=== PATIENT | female | born 1980 | race Caucasian/White ===

== ENCOUNTER 2020-11-21 18:34 | Emergency (ER) | payer OTHER ==
[2020-11-21 18:54] VITALS: RESP 18; TEMP 97.9
--- NOTE | 2020-11-21 19:18 | ED ---
Skin/Abscess/FB HPI - General Chief complaint: Skin/Abscess/Foreign Body Stated complaint: female Time Seen by Provider: 11/21/20 19:00 Source: patient Mode of arrival: ambulatory Limitations: no limitations - History of Present Illness Initial comments: 40-year-old female patient presents to the emergency department today for evaluation of "cyst" to her left buttock. Patient states that she started having issues with the area a couple of weeks ago it did get better then started getting worse again a few days ago. States the area is increased in size and has become more painful. Denies any drainage from the area. Denies any fever or chills. Denies nausea or vomiting. States she has had abscess to her axilla before which did have to be drained. Denies any IV drug use. Denies any history of diabetes or other immunosuppressive conditions. Patient denies any recent rash, cough, shortness of breath, chest pain, abdominal pain, diarrhea, constipation, back pain, numbness, tingling, dizziness, weakness, hematuria, dysuria, urinary urgency, urinary frequency, headache, visual changes, or any other complaints. - Related Data Previous Rx's Medication Instructions Recorded Clindamycin [Cleocin] 450 mg PO Q6H #120 cap 11/21/20 Allergies Allergy/AdvReac Type Severity Reaction Status Date / Time Sulfa (Sulfonamide Allergy Anaphylaxis Verified 11/21/20 18:54 Antibiotics) Review of Systems ROS Statement: Those systems with pertinent positive or pertinent negative responses have been documented in the HPI. ROS Other: All systems not noted in ROS Statement are negative. Past Medical History Past Medical History: No Reported History History of Any Multi-Drug Resistant Organisms: None Reported Past Surgical History: Hysterectomy Past Psychological History: Anxiety, Bipolar, Depression Smoking Status: Current every day smoker Past Alcohol Use History: None Reported Past Drug Use History: None Reported General Exam Limitations: no limitations General appearance: alert, in no apparent distress, other (This is a well- developed, well-nourished adult female patient in no acute distress. Vital signs upon presentation temperature 97.9F, pulse 83, respirations 18, blood pressure 118/64, pulse ox 97% on room air.) Eye exam: Present: normal appearance, PERRL, EOMI. Absent: scleral icterus, co njunctival injection, periorbital swelling ENT exam: Present: normal exam, normal oropharynx, mucous membranes moist Respiratory exam: Present: normal lung sounds bilaterally. Absent: respiratory distress, wheezes, rales, rhonchi, stridor Cardiovascular Exam: Present: regular rate, normal rhythm, normal heart sounds. Absent: systolic murmur, diastolic murmur, rubs, gallop, clicks GI/Abdominal exam: Present: soft, normal bowel sounds. Absent: distended, tenderness, guarding, rebound, rigid Neurological exam: Present: alert, oriented X3, CN II-XII intact Psychiatric exam: Present: normal affect, normal mood Skin exam: Present: warm, dry, intact, normal color. Absent: rash Expanded 1 - There is 3 cm x 3 cm abscess to the left lower buttock, surrounding erythema, tender to touch, central area is fluctuant with some surrounding induration. Course Vital Signs 11/21/20 18:51 Temperature 97.9 F Pulse Rate 83 Respiratory 18 Rate Blood Pressure 118/64 O2 Sat by Pulse 97 Oximetry Procedures - Incision & Drainage Consent Obtained: verbal consent Indication: abscess Site: buttock (left) Size (cm): 3 Anesthetic Used: lidocaine 1% Amount (mLs): 2 I&D Cleaning Method: Betadine Scalpel Used: #11 I&D Drainage Obtained: Pus, Blood Culture Obtained?: Yes Complications: pain Patient Tolerated Procedure: well Medical Decision Making - Medical Decision Making 40-year-old female patient presented to the emergency department for evaluation of "cyst" to the left buttock. Physical examination revealed a 3 cm abscess to the left lower buttock with a central area of fluctuance. This area was incised and drained as documented. She was started on antibiotics. She is educated regarding hot compresses and sitz baths. She is given a starter pack and Tylenol for codeine. I was going to give her prescription for ibuprofen however she declined stating that it turned her stomach. She does have naproxen at home. She is instructed to follow-up with her primary care physician for recheck in 1-2 days. Return parameters were discussed in detail. She verbalizes understanding and agrees with this plan. Case discussed with Dr. Stinson. Disposition Clinical Impression: Left buttock abscess Disposition: HOME SELF-CARE Condition: Good Instructions (If sedation given, give patient instructions): Abscess Incision and Drainage (ED) Additional Instructions: Do warm compresses or warm baths several times per day. Follow up with the primary for evaluation in 1-2 days. Return to the emergency department for evaluation for any new, worsening, or concerning symptoms. Prescriptions: Clindamycin [Cleocin] 450 mg PO Q6H #120 cap Is patient prescribed a controlled substance at d/c from ED?: No Referrals: Huang Rod MD [Primary Care Provider] - 1-2 days Time of Disposition: 19:46
[2020-11-21] MEDS: IBUPROFEN 600 MG STARTER PACK 4 TAB BTL PO STA (19:24)
[2020-11-21] MEDS: ACET/COD 300 MG/30 MG STARTER PACK 6 TAB BTL PO STA (19:25)
[2020-11-21] MEDS: LIDOCAINE 1% INJ 10MG/ML (20 ML MDV) SQ ONE (19:26)
[2020-11-21] MEDS: CLINDAMYCIN 150 MG CAP PO STA (19:44)
[2020-11-21 19:59] VITALS: BP 120/80; PULSE 87
== END 2020-11-21 19:54 | disposition home or self-care (01) ==
LOC: EC 18:34
DX: L02.31 Cutaneous abscess of buttock (principal); F41.9 Anxiety disorder, unspecified; F32.9 Major depressive disorder, single episode, unspecified; F17.200 Nicotine dependence, unspecified, uncomplicated
CPT/HCPCS: 87070; 87205; 99282; 10060; J2001

== ENCOUNTER 2020-12-03 13:11 | Emergency (ER) | payer OTHER ==
[2020-12-03 13:16] VITALS: BP 120/83; PULSE 101; RESP 18; TEMP 98.2
[2020-12-03] MEDS ORDERED: LIDOCAINE 1% INJ 10MG/ML (20 ML MDV) SQ ONE (13:23)
[2020-12-03] MEDS ORDERED: HYDROmorphone 0.5 MG/0.5 ML SYRINGE IM STA (13:23)
[2020-12-03] MEDS ORDERED: ACET/COD 300 MG/30 MG STARTER PACK 6 TAB BTL PO STA (14:00)
--- NOTE | 2020-12-03 14:00 | ED ---
Skin/Abscess/FB HPI - General Source: patient Mode of arrival: ambulatory Limitations: no limitations <Yoana Ackerman - Last Filed: 12/03/20 14:00> <Lady Scott - Last Filed: 12/12/20 14:48> - General Chief complaint: Skin/Abscess/Foreign Body Stated complaint: Boil R leg Time Seen by Provider: 12/03/20 13:16 - History of Present Illness Initial comments: 40yo female presents today for chief complaint of left buttock abscess. Patient states she was here approximately 5 days ago and had an abscess of the left buttock drained. Patient states that it is persistent. She denies fevers chills or general malaise she denies any spreading of redness that she can tell. Patient states is very tearful to touch. She denies any rectal discharge or bleeding. Remaining used to negative upon arrival patient appears well nontoxic in no acute distress (Yoana Ackerman) - Related Data Previous Rx's Medication Instructions Recorded Clindamycin [Cleocin] 450 mg PO Q6H #120 cap 11/21/20 Doxycycline [Vibramycin] 100 mg PO BID 10 Days #20 capsule 12/03/20 Allergies Allergy/AdvReac Type Severity Reaction Status Date / Time Sulfa (Sulfonamide Allergy Anaphylaxis Verified 12/03/20 13:14 Antibiotics) Review of Systems ROS Other: All systems not noted in ROS Statement are negative. <Yoana Ackerman - Last Filed: 12/03/20 14:00> ROS Other: All systems not noted in ROS Statement are negative. <Lady Scott - Last Filed: 12/12/20 14:48> ROS Statement: Those systems with pertinent positive or pertinent negative responses have been documented in the HPI. Past Medical History Past Medical History: No Reported History History of Any Multi-Drug Resistant Organisms: None Reported Past Surgical History: Hysterectomy Past Psychological History: Anxiety, Bipolar, Depression Smoking Status: Current every day smoker Past Alcohol Use History: None Reported Past Drug Use History: None Reported <Yoana Ackerman - Last Filed: 12/03/20 14:00> General Exam Limitations: no limitations <Yoana Ackerman - Last Filed: 12/03/20 14:00> - General Exam Comments Initial Comments: General: The patient is awake and alert, in no distress Eye: Pupils are equal, round and reactive to light, extra-ocular movements are intact. No nystagmus. There is normal conjunctiva bilaterally. No signs of icterus. Cardiovascular: There is a regular rate and rhythm. No murmur, rub or gallop is appreciated. Respiratory: Lungs are clear to auscultation, respirations are non-labored, breath sounds are equal. No wheezes, stridor, rales, or rhonchi. Gastrointestinal: Soft, non-distended, non-tender abdomen without masses or organomegaly noted. There is no rebound or guarding present. There is a 9 oclock perianal abscess. tender to touch 2x2cm area of fluctuance-minimal surrounding redness Musculoskeletal: Normal ROM, no tenderness. Strength 5/5. Sensation intact. Radial pulses equal bilaterally 2+. Neurological: A&O x 3. CN II-XII intact grossly, There are no obvious motor or sensory deficits. Coordination appears grossly intact. Speech is normal. Skin: Skin is warm and dry and no rashes or lesions are noted. Psychiatric: Cooperative, appropriate mood & affect, normal judgment. (Yoana Ackerman) Course Vital Signs 12/03/20 13:12 Temperature 98.2 F Pulse Rate 101 H Respiratory 18 Rate Blood Pressure 120/83 O2 Sat by Pulse 98 Oximetry Procedures - Incision & Drainage Consent Obtained: verbal consent, written consent (1340, timeout 1345) Site: buttock (left perianal abscess 9 oclock) Anesthetic Used: lidocaine 1% Amount (mLs): 2 I&D Cleaning Method: Iodine Sterile Field Used?: No Needle Aspiration Performed?: No Irrigation Performed?: No I&D Drainage Obtained: Pus, Blood Packing: Iodoform Culture Obtained?: Yes Complications: pain (some pain) Patient Tolerated Procedure: well, no complications <Yoana Ackerman - Last Filed: 12/03/20 14:00> Medical Decision Making <Yoana Ackerman - Last Filed: 12/03/20 14:00> <Lady Scott - Last Filed: 12/12/20 14:48> - Medical Decision Making 40-year-old febrile presenting for chief complaint of abscess. Patient does not appear toxic she is not febrile she is an uncomfortable and slightly tachycardic (felt to be due to discomfort) however she is not hypotensive she denies any constitutional symptoms. Pt consented to incision and drainage, performed bedside. tolerated well. pt discharged on doxycycline. pt evaluated by attending who is agreeable to changing abx and discharge with pcp/general surgery f/u and return for worsening symptoms. (Yoana Ackerman) I was available for consultation in the emergency department. The history and physical exam were done by the midlevel provider. I was consulted for this patients care. I reviewed the case with the midlevel provider and based on their presentation of the patient, I agree with the assessment, medical decision making and plan of care as documented. Chart was dictated using [employer] dictation software. Attempts were made to correct any dictation errors however some typographical errors may persist. Patient was seen during a national state of emergency due to the Covid-19 pandemic. (Lady Scott) Disposition Is patient prescribed a controlled substance at d/c from ED?: No Time of Disposition: 14:00 <Yoana Ackerman - Last Filed: 12/03/20 14:00> <Lady Scott - Last Filed: 12/12/20 14:48> Clinical Impression: Perianal abscess Disposition: HOME SELF-CARE Condition: Good Instructions (If sedation given, give patient instructions): Abscess Incision and Drainage (ED) Additional Instructions: Please use medication as discussed. Please follow-up with family doctor in 2 days as well as general surgery. Please return to emergency room if the symptoms increase or worsen or for any other concerns. Prescriptions: Doxycycline [Vibramycin] 100 mg PO BID 10 Days #20 capsule Referrals: Huang Rod MD [Primary Care Provider] - 1-2 days Gumaro Martinez MD [Medical Doctor] - 1-2 days
== END 2020-12-03 14:13 | disposition home or self-care (01) ==
LOC: EC 13:11
DX: L02.215 Cutaneous abscess of perineum (principal); F17.200 Nicotine dependence, unspecified, uncomplicated; Z88.2 Allergy status to sulfonamides
CPT/HCPCS: 10060; 87070; 87205; 96372; 99283

== ENCOUNTER → 2021-12-31 | Outpatient (CLI) | payer OTHER ==
[2021-12-31 18:55] LABS: HCT 47.3 % (37.2-46.3); HGB 15.8 g/dL (12.0-15.0); MCH 30.9 pg (27.0-32.0); MCHC 33.4 g/dL (32.0-37.0); MCV 92.4 fL (80.0-97.0); Mean Platelet Volume 10.2 fL (9.5-12.2); NRBC Per 100 WBC 0 /100 WBCS (0.0-0.0); Platelet Count 400 X 10*3/uL (140-440); RBC 5.12 X 10*6/uL (4.10-5.20); RDW 11.9 % (11.5-14.5); WBC 13.11 X 10*3/uL (4.50-10.00)
[2021-12-31 18:57] LABS: ALT 61 U/L (8-44); AST 37 U/L (13-35); African American GFR (CKD) 94.9 (60.0-200.0); Albumin 4.8 g/dL (3.8-4.9); Albumin/Globulin Ratio 1.66 (1.60-3.17); Alkaline Phosphatase 68 U/L (41-126); BUN/Creat Ratio 10.91 Ratio (12.00-20.00); Blood Urea Nitrogen 9.6 mg/dL (9.0-27.0); Calcium 10.5 mg/dL (8.7-10.3); Chloride 105 mmol/L (96-109); Chol/HDL Ratio 7.03 Ratio; Globulin 2.9 g/dL (1.6-3.3); Glucose 98 mg/dL (70-110); LDL Cholesterol,Calculated 224.2 mg/dL (0.0-131.0); Non-African American GFR(CKD) 81.9 (60.0-200.0); Potassium 4.4 mmol/L (3.5-5.5); Sodium 140 mmol/L (135-145); Total Protein 7.7 g/dL (6.2-8.2)
== END | disposition home or self-care (01) ==
LOC: LABWHC1 13:57
PROVIDERS: ATTEND Nurse Practitioner Family
DX: Z13.220 Encounter for screening for lipoid disorders (principal); Z13.1 Encounter for screening for diabetes mellitus; K21.9 Gastro-esophageal reflux disease without esophagitis; Z68.31 Body mass index [BMI] 31.0-31.9, adult
CPT/HCPCS: 36415; 80053; 80061; 85027